=== PATIENT | female | born 1970 | race Caucasian/White ===

== ENCOUNTER → 2020-11-12 16:38 | Outpatient (BNVA) | payer BC, SELFPAY | PROVIDERS: Family Provider Nurse Practitioner Family; PCP Nurse Practitioner Family; Visit Provider Family Medicine | DX: R10.9 Unspecified abdominal pain (principal) | CPT/HCPCS: 81003 ==

== ENCOUNTER → 2021-08-31 00:01 | Outpatient (BNVA) | payer BC, SELFPAY | PROVIDERS: Family Provider Nurse Practitioner Family; PCP Registered Nurse; Visit Provider Registered Nurse Neonatal Intensive Care | DX: Z20.822 Contact with and (suspected) exposure to COVID-19 (principal) | CPT/HCPCS: 87426 ==

== ENCOUNTER → 2023-03-01 08:29 | Outpatient (BNVA) | payer BC, SELFPAY | PROVIDERS: Family Provider Nurse Practitioner Family; PCP Registered Nurse; Visit Provider Nurse Practitioner Family | DX: R53.83 Other fatigue (principal); Z79.899 Other long term (current) drug therapy | CPT/HCPCS: 80053; 81000; 83516; 85025; 85651; 86140; 86618; 86666; 86757 ==